=== PATIENT | female | born 1995 ===

== ENCOUNTER 2023-02-17 15:36 | Emergency (ER) | payer OTHER ==
[~2023-02-17] VITALS: Ht 165.1 cm; Wt 72.6 kg
[2023-02-17 15:40] VITALS: BP 148/92
[2023-02-17] MEDS ORDERED: PRED20 PO (15:46)
== END 2023-02-17 15:50 | disposition home or self-care (01) ==
LOC: ER 15:36
DX: L23.7 Allergic contact dermatitis due to plants, except food (principal)
CPT/HCPCS: 99283; J7512

== ENCOUNTER 2023-02-21 17:21 | Emergency (ER) | payer OTHER ==
[~2023-02-21] VITALS: Ht 167.6 cm; Wt 68.0 kg
[~2023-02-21 17:21] MED LIST: PRED20 PO
[2023-02-21 17:30] VITALS: BP 108/88
== END 2023-02-21 18:28 | disposition home or self-care (01) ==
LOC: ER 17:21
DX: S91.031A Puncture wound without foreign body, right ankle, initial encounter (principal); W61.32XA Struck by chicken, initial encounter
CPT/HCPCS: 90471; 90715; 96372; 99283; J1885

== ENCOUNTER 2025-05-01 12:49 | Emergency (ER) | payer OTHER ==
[~2025-05-01] VITALS: Ht 165.1 cm; Wt 77.1 kg
[2025-05-01 13:06] LABS: BASOPHILS ABSOLUTE AUTO 0.05 K/mm3 (0.00-0.23); BASOPHILS PERCENT AUTO 1 % (0-2); EOSINOPHILS ABSOLUTE AUTO 0.06 K/mm3 (0.00-0.68); EOSINOPHILS PERCENT AUTO 1 % (0-6); Hematocrit 42.8 % (33.0-51.0); Hemoglobin 14.4 g/dL (11.5-16.0); IMMATURE GRAN ABSOLUTE AUTO 0.02 K/mm3 (0.00-0.10); IMMATURE GRAN PERCENT AUTO 0 % (0-1); LYMPHOCYTES ABSOLUTE AUTO 2.88 K/mm3 (0.84-5.20); LYMPHOCYTES PERCENT AUTO 34 % (21-46); MONOCYTES ABSOLUTE AUTO 0.65 K/mm3 (0.16-1.47); MONOCYTES PERCENT AUTO 8 % (4-13); Mean Corpuscular HGB Conc 33.6 g/dL (31.5-36.5); Mean Corpuscular Volume 83 fL (80-100); NEUTROPHILS ABSOLUTE AUTO 4.88 K/mm3 (1.96-9.15); NEUTROPHILS PERCENT AUTO 57 % (41-73); NRBC ABSOLUTE 0.00 K/mm3 (0.00-0.02); NRBC Auto 0.0 /100 WBC (0.0-0.2); Platelet Count 365 K/mm3 (150-400); RDW Coefficient Variation 13.0 % (11.7-14.2); RDW Standard Deviation 39.6 fL (35.1-46.3)
[2025-05-01 13:32] LABS: Alanine Aminotransfer (ALT/SGP 18.0 U/L (12-78); Albumin, Blood 3.8 g/dL (3.4-5.0); Albumin/Globulin Ratio 1.0 (0.8-1.8); Anion Gap 8.0 mmol/L (3-11); Aspartate Aminotrans (AST/SGOT 15.0 U/L (12-37); Bilirubin, Total 0.3 mg/dL (0.1-1.0); Blood Urea Nitrogen 6.0 mg/dL (8-24); CO2, Blood 25.0 mmol/L (21-32); Calcium, Blood 9.2 mg/dL (8.5-10.1); Chloride, Blood 108.0 mmol/L (98-108); Creatinine, Blood 0.61 mg/dL (0.40-1.00); Globulin, Blood 4.0 g/dL (2.2-4.0); Glucose, Blood 106.0 mg/dL (70-99); Potassium, Blood 3.8 mmol/L (3.5-5.5); Sodium, Blood 137.0 mmol/L (136-145); Total Protein, Blood 7.8 g/dL (6.4-8.2)
[2025-05-01] MEDS ORDERED: Ketorolac Tromethamine 15mg Vial IV ONE (13:40)
[2025-05-01] MEDS ORDERED: Robaxin750 MG PO (15:45)
[2025-05-01] MEDS ORDERED: Voltaren100 GM TOP (15:51)
[2025-05-01 15:52] VITALS: BP 134/85
== END 2025-05-01 15:52 | disposition home or self-care (01) ==
LOC: ER 12:49
PROVIDERS: Emergency Medicine; Physician Assistant
DX: S29.012A Strain of muscle and tendon of back wall of thorax, initial encounter (principal); X58.XXXA Exposure to other specified factors, initial encounter; E27.1 Primary adrenocortical insufficiency; R06.00 Dyspnea, unspecified; R53.83 Other fatigue; R53.81 Other malaise
CPT/HCPCS: 70450; 71046; 80053; 83690; 83880; 84146; 84439; 84443; 84481; 84484; 84703; 85025; 96374; 99284-25; J1885